=== PATIENT | female | born 1965 | race Two or more races ===

== ENCOUNTER 2024-04-26 12:55 | Outpatient (REF) | payer OTHER, SELFPAY ==
[2024-04-26 14:21] LABS: MANUAL DIFF FLAG NO
[2024-04-26 14:28] LABS: Basophils Absolute Auto 0.1 X10*3/uL (0.0-0.2); Basophils Percent Auto 0.7 % (0-2); Eosinophils Absolute Auto 0.1 X10*3/uL (0.0-0.4); Hemoglobin 12.8 g/dl (12.0-16.0); Imm Gran Abs Auto 0.02 X10*3/uL (0.00-0.03); Imm Gran Pct Auto 0.3 % (0.0-0.4); Lymphocytes Absolute Auto 2.7 X10*3/uL (1.2-4.9); Lymphocytes Percent Auto 37.9 % (20-40); Mean Corpuscular HGB Conc 32.8 g/dl (31.0-35.0); Mean Corpuscular Hemoglobin 27.9 pg (27.0-33.0); Mean Platelet Volume 10.6 fL (9.4-12.3); Monocytes Absolute Auto 0.5 X10*3/uL (0.1-1.2); Monocytes Percent Auto 7.1 % (2-11); Neutrophils Absolute Auto 3.6 x10*3/uL (2.0-8.3); Platelet Count 224 X10*3/uL (160-400); Red Blood Count 4.59 X10*6/uL (4.20-5.50); Red Cell Distribution Width 12.8 % (11.0-16.0)
[2024-04-26 14:56] LABS: Alanine Aminotransferase 28 U/L (0-31); Alkaline Phosphatase 98 U/L (39-117); Anion Gap 14 (12-20); Aspartate Amino Transferase 28 U/L (5-31); Bilirubin Total 0.4 mg/dL (0.0-1.0); Blood Urea Nitrogen 9 mg/dL (9-16); Calcium 9.7 mg/dL (8.4-10.2); Carbon Dioxide 23 mmol/L (22-29); Chloride 107 mmol/L (96-108); Cholesterol 171 mg/dL (<200); Estimated Glomerular Filt Rate > 60; Glucose Random 97 mg/dL (60-115); HDL Cholesterol 58 mg/dL (>40); LDL Cholesterol Calculated 93 mg/dL (<100); Potassium 3.7 mmol/L (3.3-5.1); Sodium 140 mmol/L (135-145); Total Protein 7.1 g/dL (6.5-8.0); Triglycerides 101 mg/dL (<150)
[2024-04-26 15:04] LABS: TSH reflex Free T4 1.55 uIU/mL (0.32-4.0)
[2024-04-27 07:13] LABS: Follicle Stimulating Hormone 155.6 mIU/mL
[2024-04-27 08:55] LABS: HIV AB/AG Nonreactive (Nonreactive); HIV Num 1 0.05 S/CO (0.00-0.99); ~HepC Num1 0.08 S/CO (0.00-0.79); ~Hepatitis C Antibody Nonreactive (Nonreactive)
[2024-05-05 04:23] LABS: Estradiol Ultra Sensitive 7 pg/mL
== END 2024-04-26 12:56 | disposition home or self-care (01) ==
LOC: HO.CHCLDS 12:55
PROVIDERS: Visit Provider Family Medicine
DX: Z13.9 Encounter for screening, unspecified (principal); Z78.0 Asymptomatic menopausal state
CPT/HCPCS: 36415; 80053; 80061; 82670; 83001; 84443; 85025; 86803; 87389

== ENCOUNTER 2024-12-17 16:15 | Outpatient (REF) | payer OTHER, SELFPAY ==
--- OUTSIDE RECORDS SUMMARY | 2024-12-17 16:18 | XMS_ITS | Encounter Summary ---
Author Organization [employer] Address [address] [facility] 7t [place] [address] Care Team Providers Care [employer] Compliance Internship Name Role Phone Nancy Castillo MD Primary Care Provider [phone] Encounter Details Date Type Department Care Team (Latest Contact Info) Description 12/17/2024 Travel Social History Tobacco Use Types Packs/Day Years Used Date Smoking Tobacco: Never Passive Smoke Exposure: Never Smokeless Tobacco: Never Alcohol Use Standard Drinks/Week Comments Never 0 (1 standard drink = 0.6 oz pur e alcohol) Housing Stability Answer Date Recorded What is your housing situation today? I have jeimy ron 04/16/[address] you li ve. Do you have problems with any of the following? None of the above 04/16/2024 Food Insecurity Answer Date Recorded Within the past 12 months, y ou worried that your food would run out before you got money to buy more: Never True 04/16/2024 Within the past 12 months,th e food you bought just didn't last and you didn't have enough money to get more: Never True 05/2024 Transportation Answer Date Recorded In the past 12 months, has l ack of transportation kept you from medical appts, meetings, work or from getting things needed for daily living? No 04/16/2024 Utilities Answer Date Recorded In the past 12 months, has t he electric, gas, oil or water company threatened to shut off services in your home? No 04/16/2024 Internet Access Answer Date Recorded Internet Access Q1 Yes 05/10/2024 Internet Access Q2 Not on file 05/10/2024 Comments Unknown Sex and Gender Information Value Date Recorded Sex Assigned at Female 07/08/2022 10:25 AM EDT Legal Sex Female 10:25 AM EDT Gender Identity Female 07/08/2022 10:25 AM EDT Sexual Orientation Straight 07/08/2022 10 :25 AM EDT Occupation Industry Job Start Date Job End Date Works in [employer] Not on file Not on file Not on file documented as of this encounter Plan of Treatment Not on file documented as of this encounter Visit Diagnoses Not on filedocumented in this encounter Care Teams [employer] Compliance Internship Relationship Specialty Start Date End Date Nancy Castillo MD [address] [place] [address] PCP - General Family Medicine 04/23/24 documented as of this encounter
--- OUTSIDE RECORDS SUMMARY | 2024-12-17 16:18 | XMS_ITS | Clinical Summary ---
Author Organization [employer] Address [address] [facility] 7t [place] [address] Care Team Providers Care Patient Access Representative Name Role Phone Nancy Castillo MD Primary Care Provider [phone] Allergies No known active allergies Medications omeprazole (PriLOSEC) [address] capsule Take 1 capsule (20 mg) by mouth Once per day. 90 capsule 1 4 Active gabapentin (Neurontin) 300 MG capsule Take 1 capsule (300 mg) by mouth 2 times daily. 180 capsule 1 4 Active triamcinolone (Kenalog) 0.1 % cream Apply topically 2 times daily. 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 Pt's is HIV positive. RUQ abdominal pain 04/22/2024 Lumbago with sciatica 04/22/2024 Hoarseness 04/22/2024 Heartburn 04/22/2024 Assessment & Plan (04/25/2024 1:41 AM EDT): Relevant orders: Omeprazole (PriLOSEC) [address] capsule Chronic pain of left elbow 04/22/2024 Chronic low back pain 04/22/2024 Encounters Date Type Department Care Team Description 12/17/2024 3:20 PM EDT Office Visit [facility] [address] [place] [address] Hoarseness (Primary Dx); Chronic hand pain, right 12/17/2024 Travel 11/15/2024 Telephone [facility] [address] [place], [place] [phone] Nancy Castillo MD Nurse Triage 11/09/2024 Refill [facility] [address] [place], [place] [phone] Mikey Edwards MD Paresthesia from Last 3 Months Immunizations Name Administration Dates Next Due Tdap 02/08/2023 Family History Medical History Relation Name Comments Lung disease Father Breast cancer Mother Relation Name Status Comments Father Mother Social History Tobacco Use Types Packs/Day Years Used Date Smoking Tobacco: Never Passive Smoke Exposure: Never Smokeless Tobacco: Never Tobacco Cessation:Counseling Given: Not Answered Alcohol Use Standard Drinks/Week Comments Never 0 (1 standard drink = 0.6 oz pur e alcohol) Housing Stability Answer Date Recorded What is your housing situation today? I have jeimywin velasquez 04/16/[address] you li [...] Start Date Job End Date Works in [employer] Not on file Not on file Not on file Last Filed Vital Signs Vital Sign Reading Time Taken Comments Blood Pressure 138/79 12/17/2024 3:20 PM EDT Pulse 64 12/17/2024 3:20 PM EDT Temperature 36.1 ??C (97 ??F) 12/17/2024 3:20 PM EDT Respiratory Rate 14 12/17/2024 3:20 PM EDT Oxygen Saturation 100% 12/17/2024 3:20 PM EDT Inhaled Oxygen Concentration - - Weight 66.2 kg (146 lb) 12/17/2024 3:20 PM EDT Height 160 cm (5' 3 ) 12/17/2024 3:20 PM EDT Body Mass Index 25.86 12/17/2024 3:20 PM EDT Plan of Treatment Health Maintenance Due Date Last Done Comments CT Colonography 1967 Colonoscopy 1967 Colorectal Cancer Screening 1967 Depression Screening 1967 FIT DNA/Cologuard 1967 FIT 1967 FOBT 1967 Sigmoidoscopy 1967 Alcohol/Substance Use Screening 1979 Hepatitis B Vaccines (1 of 3 - 19+ 3-dose series) 1986 HPV/Cotest 1997 Mammogram 2007 Pneumococcal Vaccine: 50+ Years (1 of 1 - PCV) 2017 Zoster Vaccines (1 of 2) 2017 COVID-19 Vaccine (5 - season) 2024 07/26/2022, 06/27/2021, 11/04/2020, Additional history exists Influenza Vaccine (#1) 2024 SDOH Screening 04/16/2025 04/16/2024 Cervical Cancer Screening 11/27/2025 Pap Smear 11/27/2025 11/27/2022 Tobacco Screening 12/17/2025 12/17/2024 DTaP/Tdap/Td Vaccines (2 - Td or Tdap) 02/08/2033 02/08/2023 RSV Patients and Patients Aged 60 years or older (1 - 1-dose 75+ series) 2042 HIV Screening Completed 04/26/2024 Hepatitis C Screening Completed 04/26/2024 HIB Vaccines Aged Out No longer eligi ble based on patient's age to complete this topic HPV Vaccines Aged Out No longer eligi ble based on patient's age to complete this topic Hepatitis A Vaccines Aged Out No long er eligible based on patient's age to complete this topic IPV Vaccines Aged Out No longer eligi ble based on patient's age to complete this topic Meningococcal Vaccine Aged Out No eze william eligible based on patient's age to complete this topic RSV under 20 months Aged Out No longe r eligible based on patient's age to complete this topic Rotavirus Vaccines Aged Out No longer eligible based on patient's age to complete this topic Procedures Procedure Name Priority Date/Time Associated Diagnosis Comments HEPATITIS C AB W/REFL TO HCV RNA, QN, PCR Routine 04/26/2024 12:59 PM EDT Encounter for health-related screening HIV 1/2 ANTIGEN/ANTIBODY, FOURTH GENERATION W/RFL Routine 04/26/2024 12:59 PM EDT Encounter for health-related screening PAP SMEAR Routine 11/27/2022 from Last 3 Months or Most Recently Relevant to Health Maintenance Results * Hepatitis C Antibody with Reflex to HCV, RNA, Quantitative, Real-Time PCR (04/26/2024 12:59 PM EDT) Hepatitis C Antibody Nonreactive Nonreactive [facility] Comment:Antibodies to HCV no t detected; does not exclude early acuteHCV infection. Blood Venous blood specimen / Unknown 04/26/2024 12:59 PM EDT 04/26/2024 2:19 PM EDT Nancy Castillo MD LAB BLOOD ORDERABLES Final Re sult Performing Organization Address [facility] Co de Phone Number [facility] [address] [place] [phone] * HIV-1/2 Antigen and Antibodies, Fourth Generation, with Reflexes (04/26/2024 12:59 PM EDT) HIV AB/AG Nonreactive Nonreactive [facility] Comment:HIV-1 p24 Ag and/or HIV-1/HIV-2 Ab not detected.A test result that is nonreactive does not exclude thepossibility of exposure to or infection with HIV-1 and/orHIV-2. Nonreactive results in this assay for individualswith prior exposure to HIV-1 and/or HIV-2 may be due toantigen and antibody levels that are below the limit ofdetection of this assay.The [employer] Socket HIV Ag/Ab Combo assay result andsupplemental assay results should be interpreted inconjunction with the patient's clinical presentation,history and other laboratory results. If the results areinconsistent with clinical evidence, additional testing issuggested to confirm the result. Blood Venous blood specimen / Unknown 04/26/2024 12:59 PM EDT 04/26/2024 2:19 PM EDT Nancy Castillo MD LAB BLOOD ORDERABLES Final Re sult Performing Organization Address [facility] Co de Phone Number [facility] [address] [place] [phone] * Pap Smear (11/27/2022) Pap Smear 1. NILM 1. NILM Swab 11/27/2022 Historical Provider LAB CYTOLOGY ORDERABLES F inal Result from Last 3 Months or Most Recently Relevant to Health Maintenance Insurance [facility] Care Teams Patient Access Representative Relationship Specialty Start Date End Date Nancy Castillo MD [address] [place] [phone] PCP - General Family Medicine 04/23/24
--- OUTSIDE RECORDS SUMMARY | 2024-12-17 16:18 | XMS_ITS | Encounter Summary ---
Author Organization [employer] Address [address] [place] [address] 7t [place] [address] Care Team Providers Care Product Manager Financial Services Name Role Phone Nancy Castillo MD Primary Care Provider Reason for Referral * Neurology (Routine) - Pending Review Specialty Diagnoses / Procedures Referred By Pedro french Referred To Contact Diagnoses Chronic hand pain, right Procedures Nerve conduction test Audra Monroe MD [address] [place] [address] Phone: tel: fax: Referral ID Status Reason Start Date Expiration Date V isits Requested Visits Authorized [id number] Pending Review 12/17/2024 12/17/2025 1 1 * Neurology (Routine) - Pending Review Specialty Diagnoses / Procedures Referred By Pedro french Referred To Contact Diagnoses Chronic hand pain, right Procedures EMG Audra [place] MD [address] [place] [address] Phone: tel: fax: Referral ID Status Reason Start Date Expiration Date V isits Requested Visits Authorized [id number] Pending Review 12/17/2024 12/17/2025 1 1 Encounter Details Date Type Department Care Team ([facility] st Contact Info) Description 12/17/2024 3:20 PM EDT Office Visit [facility] [address] [place], [place] [phone] Hoarseness (Primary Dx); Chronic hand pain, right Social History Tobacco Use Types Packs/Day Years Used Date Smoking Tobacco: Never Passive Smoke Exposure: Never Smokeless Tobacco: Never Alcohol Use Standard Drinks/Week Comments Never 0 (1 standard drink = 0.6 oz pur e alcohol) Housing Stability Answer Date Recorded What is your housing situation today? I have jeimy velasquez 04/16/[address] you [...] Start Date Job End Date Works in [employer] Not on file Not on file Not on file documented as of this encounter Last Filed Vital Signs Vital Sign Reading [...] Mass Index 25.86 12/17/2024 3:20 PM EDT documented in this encounter Plan of Treatment Scheduled Orders Name Type Priority Associated Diagnoses Orde r Schedule Acetylcholine Receptor Blocking Antibody Lab Routine Hoarseness Expected: 12/17/2024 (Approximate), Expires: 12/17/2025 EMG Neurology Routine Chronic hand pain, right Expected: 12/17/2024, Expires: 06/18/2025 Nerve conduction test Neurology Routine Chronic hand pain, right Expected: 12/17/2024 (Approximate), Expires: 12/17/2025 documented as of this encounter Visit Diagnoses Diagnosis Hoarseness- Primary Dysphonia Chronic hand pain, right documented in this encounter Care Teams Product Manager Financial Services Relationship Specialty Start Date End Date Nancy Csatillo MD [address] [place] [phone] PCP - General Family Medicine 04/23/24 documented as of this encounter
--- OUTSIDE RECORDS SUMMARY | 2024-12-17 16:18 | XMS_ITS | Encounter Summary ---
Author Organization [email or web address] Address [address] [facility] 7t [place] [address] Care Team Providers Care Photographer'S Assistant Name Role Phone Nancy Castillo MD Primary Care Provider [phone] Reason for Visit * Reason Onset Date Comments Nurse Triage 08/17/2024 Encounter Details Date Type Department Care Team ([facility] Contact Info) Description 08/17/2024 Telephone [facility] [address] [place], [place] [phone] Nancy Castillo MD [address] [place] [address] Nurse Triage Social History Tobacco Use Types Packs/Day Years [...] Start Date Job End Date Works in [employer] Not on file Not on file Not on file documented as of this encounter Miscellaneous Notes * Telephone Encounter - Renetta Rodarte RN - 08/17/2024 12:10 PM EST Triage call Pt reports rash which was the same as this time last year. Pt reports last year Pt returned to [facility] and was treated there. Pt describes rash as red, smooth unless was scratched due to itchiness and then it gets bumpy. Neg for drainage. Areas for rash are abdomen, breast, shoulder, underarms, back and vaginal area. ASK apt in [facility] 08/18/24 @ 200pm. Pt agrees with disposition. Insurance is verified as active prior to booking. Protocol Used: Rash or Redness - Widespread (Adult) Protocol-Based Disposition: See in Office or Video Visit Today or Tomorrow Video visit not offered Positive Triage Question: * Mild widespread rash (Exception: Heat rash lasting 3 days or less.) * All higher-acuity triage questions were negative Care Advice Discussed: * Reassurance and Education - Widespread Rash * Reasons To Call Back - Rash becomes purple or blood-colored or blister-like - Fever occurs or severe itching - You become worse * Telephone Encounter - Janine Kerr - 08/17/2024 11:27 AM EST Symptom: Rash or Redness - Widespread Outcome: Schedule a same-day appointment or talk to a nurse or provider today Reason: Caller denied all higher acuity questions The caller accepted this outcome. documented in this encounter Plan of Treatment Not on file documented as of this encounter Visit Diagnoses Not on filedocumented in this encounter Care Teams Photographer'S Assistant Relationship Specialty Start Date End Date Nancy Castillo MD [address] [place] [address] PCP - General Family Medicine 04/23/24 documented as of this encounter
--- OUTSIDE RECORDS SUMMARY | 2024-12-17 16:18 | XMS_ITS | Encounter Summary ---
Author Organization [employer] Address [address] [facility] 7t [place] [address] Care Team Providers Care Lion Trainer Name Role Phone Nancy Castillo MD Primary Care Provider [phone] Encounter Details Date Type Department Care Team ([facility] st Contact Info) Description 04/27/2024 Orders Only [facility] [address] [place], [place] [phone] ProviderAlma MD Social History Tobacco Use Types Packs/Day Years [...] off services in your home? No 04/16/2024 Comments Unknown Sex and Gender Information Value Date Recorded Sex Assigned at Female 07/08/2022 10:25 AM EDT Legal Sex Female 10:25 AM EDT Gender Identity Female 07/08/2022 10:25 AM EDT Sexual Orientation Straight 07/08/2022 10 :25 AM EDT Occupation Industry Job Start Date Job End Date Works in [employer] Not on file Not on file Not on file documented as of this encounter Plan of Treatment Not on file documented as of this encounter Procedures Procedure Name Priority Date/Time Associated Diagnosis Comments CYTOLOGY, CONVENTIONAL PAP SMEAR, 1 SLIDE Routine 11/27/2022 3:55 PM EDT CYTOLOGY, CONVENTIONAL PAP SMEAR, 1 SLIDE Routine 11/26/2021 3:54 PM EDT documented in this encounter Results * Cytology, Conventional Pap Smear, 1 Slide (11/27/2022 3:55 PM EDT) Historical Provider MD LAB CYTOLOGY ORDERABLES F inal Result * Cytology, Conventional Pap Smear, 1 Slide (11/26/2021 3:54 PM EDT) us Historical Provider MD LAB CYTOLOGY ORDERABLES F inal Result documented in this encounter Visit Diagnoses Not on filedocumented in this encounter Care Teams Lion Trainer Relationship Specialty Start Date End Date Nancy Castillo MD [address] [place] [phone] PCP - General Family Medicine 04/23/24 documented as of this encounter
[2024-12-23 02:55] LABS: Acetylcholine Recept. Blocking <15 (<15)
== END 2024-12-17 16:16 | disposition home or self-care (01) ==
LOC: CF 16:15
PROVIDERS: Visit Provider Internal Medicine
DX: R49.0 Dysphonia (principal)
CPT/HCPCS: 36415; 86042

== ENCOUNTER 2025-01-04 10:02 | Outpatient (REF) | payer OTHER, SELFPAY ==
--- NOTE | 2025-01-04 10:06 | EMG_ITS ---
Right median and ulnar motor and sensory studies were performed. Right radial sensory and median and lateral antecubital brachial sensory studies were performed and paraspinal muscles were tested with a needle. IMPRESSION: This is an unremarkable study with no evidence of entrapment neuropathy, plexopathy, or radiculopathy. MD STEPHANIE Thomas/SEGUNDO / [id number]
--- OUTSIDE RECORDS SUMMARY | 2025-01-04 11:23 | XMS_ITS | Clinical Summary ---
Author Organization [employer] Address [address] [facility] 7t [place] [address] Care Team Providers Care Database Design Analyst Name Role Phone Nancy Castillo MD Primary Care Provider [phone] Allergies No known active allergies Medications omeprazole [...] Encounters Date Type Department Care Team Description 12/28/2024 Telephone [facility] [address] [place] [address] Audra Monroe MD Results 12/17/2024 3:20 PM EDT Office Visit [facility] [address] [place] [address] Audra Monroe MD Hoarseness (Primary Dx); Chronic hand pain, right 12/17/2024 Travel 11/15/2024 Telephone [facility] [address] [place] [address] Nancy Castillo MD Nurse Triage 11/09/2024 Refill [facility] [address] [place] [address] Mikey Edwards MD Paresthesia from Last 3 [...] Start Date Job End Date Works in [employer] Not on file Not on file [...] Procedure Name Priority Date/Time Associated Diagnosis Comments ACETYLCHOLINE RECEPTOR BLOCKING ANTIBODY Routine 12/17/2024 4:16 PM EDT Hoarseness HEPATITIS C AB W/REFL TO HCV RNA, QN, PCR Routine 04/26/2024 12:59 PM EDT Encounter for health-related screening HIV 1/2 ANTIGEN/ANTIBODY, FOURTH GENERATION W/RFL Routine 04/26/2024 12:59 PM EDT Encounter for health-related screening PAP SMEAR Routine 11/27/2022 from Last 3 Months or Most Recently Relevant to Health Maintenance Results * Acetylcholine Receptor Blocking Antibody (12/17/2024 4:16 PM EDT) Acetylcholine Receptor Blocking Antibody <15 <15 [facility] Comment:Result Units: % Inhi bitionTHIS TEST WAS PERFORMED AT:[facility] [id number] [place] [id number] HAYNES MD,PHD,HELENE Blood Venous blood specimen / Unknown 12/17/2024 4:16 PM EDT 12/17/2024 5:41 PM EDT us Audra Monroe MD LAB BLOOD ORDERABLES Final Re sult Performing Organization Address [facility] Co de Phone Number [facility] [address] [place] [address] [phone] * Hepatitis C Antibody with Reflex to HCV, RNA, Quantitative, Real-Time PCR (04/26/2024 12:59 PM EDT) Hepatitis C Antibody Nonreactive Nonreactive [facility] Comment:Antibodies to HCV no t detected; does not exclude early acuteHCV infection. Blood Venous blood specimen / Unknown 04/26/2024 12:59 PM EDT 04/26/2024 2:19 PM EDT us Nancy Castillo MD LAB BLOOD ORDERABLES Final Re sult Performing Organization Address [facility] Co de Phone Number [facility] [address] [place] [address] [phone] * HIV-1/2 Antigen and Antibodies, Fourth Generation, with Reflexes (04/26/2024 12:59 PM EDT) HIV AB/AG Nonreactive Nonreactive [facility] Comment:HIV-1 p24 Ag and/or HIV-1/HIV-2 Ab not detected.A test result that is nonreactive does not exclude thepossibility of exposure to or infection with HIV-1 and/orHIV-2. Nonreactive results in this assay for individualswith prior exposure to HIV-1 and/or HIV-2 may be due toantigen and antibody levels that are below the limit ofdetection of this assay.The [employer]HackMyPic HIV Ag/Ab Combo assay result andsupplemental assay results should be interpreted inconjunction with the patient's clinical presentation,history and other laboratory results. If the results areinconsistent with clinical evidence, additional testing issuggested to confirm the result. Blood Venous blood specimen / Unknown 04/26/2024 12:59 PM EDT 04/26/2024 2:19 PM EDT us Nancy Castillo MD LAB BLOOD ORDERABLES Final Re sult [facility] [address] [place] [phone] * Pap Smear (11/27/2022) Pap Smear 1. NILM 1. NILM Swab 11/27/2022 Historical Provider LAB CYTOLOGY ORDERABLES F inal Result from Last 3 Months or Most Recently Relevant to Health Maintenance Insurance [facility] Care Teams Database Design Analyst Relationship Specialty Start Date End Date Nancy Castillo MD [address] [place] [phone] PCP - General Family Medicine 04/23/24
--- OUTSIDE RECORDS SUMMARY | 2025-01-04 11:23 | XMS_ITS | Encounter Summary ---
Author Organization [email or web address] Address [address] [facility] 7t [place] [address] Care Team Providers Care Basket Operator Name Role Phone Nancy Castillo MD Primary Care Provider [phone] Reason for Visit * Reason Onset Date Comments Nurse Triage 08/17/2024 Encounter Details Date Type Department Care Team ([facility] Contact Info) Description 08/17/2024 Telephone [facility] [address] [place], [place] [phone] Nancy Castillo MD [address] [place] [address] Nurse Triage Social History Tobacco Use Types [...] Start Date Job End Date Works in [employer] Not on file Not on file Not on file documented as of this encounter Miscellaneous Notes * Telephone Encounter - Renetta Rodarte RN - 08/17/2024 12:10 PM EST Triage call Pt reports rash which was the same as this time last year. Pt reports last year Pt returned to [facility] and was treated there. Pt describes rash as red, smooth unless was scratched due to itchiness and then it gets bumpy. Neg for drainage. Areas for rash are abdomen, breast, shoulder, underarms, back and vaginal area. ASK apt in [facility] 08/18/24 @ 200pm. Pt agrees with disposition. [...] on filedocumented in this encounter Care Teams Basket Operator Relationship Specialty Start Date End Date Nancy Castillo MD [address] [place] [address] PCP - General Family Medicine 04/23/24 documented as of this encounter
--- OUTSIDE RECORDS SUMMARY | 2025-01-04 11:23 | XMS_ITS | Encounter Summary ---
Author Organization [employer] Address [address] [facility] 7t [place] [address] Care Team Providers Care Enrollment Services Vice President Name Role Phone Nancy Castillo MD Primary Care Provider [phone] Encounter Details Date Type Department Care Team ([facility] st Contact Info) Description 04/27/2024 Orders Only [facility] [address] [place], [place] [phone] ProviderAlma MD Social History Tobacco Use Types [...] Start Date Job End Date Works in [employer] Not on file Not on file [...] on filedocumented in this encounter Care Teams Enrollment Services Vice President Relationship Specialty Start Date End Date Nancy Castillo MD [address] [place] [phone] PCP - General Family Medicine 04/23/24 documented as of this encounter
== END 2025-01-04 10:03 | disposition home or self-care (01) ==
LOC: HO.NEURO 10:02
PROVIDERS: Visit Provider Internal Medicine
DX: M79.641 Pain in right hand (principal); G89.29 Other chronic pain
CPT/HCPCS: 95886; 95910

== ENCOUNTER 2025-04-13 09:54 | Outpatient (REF) | payer OTHER, SELFPAY ==
--- OUTSIDE RECORDS SUMMARY | 2025-04-13 10:27 | XMS_ITS | Encounter Summary ---
Author Organization [employer] Address [address] [place] [address] [address] [place] [address] Care Team Providers Care Natural Gas Field Processing Supervisor Name Role Phone Nancy Castillo MD Primary Care Provider [phone] Reason for Visit * Reason Onset Date Comments Nurse Triage 08/17/2024 Encounter Details Date Type Department Care Team ([facility] Contact Info) Description 08/17/2024 Telephone [facility] MED & PEDS [address] [place] [address] Nancy Castillo MD [address] [place] [address] Nurse Triage Social History Tobacco Use Types Packs/Day Years Used Date Smoking Tobacco: Never Passive Smoke Exposure: Never Smokeless Tobacco: Never Alcohol Use Standard Drinks/Week Comments Never 0 (1 standard drink = 0.6 oz pur e alcohol) Housing Stability Answer Date Recorded What is your housing situation today? I have jemiy velasquez 04/16/[address] you [...] Start Date Job End Date Works in [employer] Not on file Not on file Not on file documented as of this encounter Miscellaneous Notes * Telephone Encounter - Renetta Rodarte RN - 08/17/2024 12:10 PM EST Triage call Pt reports rash which was the same as this time last year. Pt reports last year Pt returned to [facility] and was treated there. Pt describes rash as red, smooth unless was scratched due to itchiness and then it gets bumpy. Neg for drainage. Areas for rash are abdomen, breast, shoulder, underarms, back and vaginal area. ASK apt in [facility] 08/18/24 @ 200pm. Pt agrees with [...] documented in this encounter Plan of Treatment Upcoming Encounters Date Type Department Care Team (Late st Contact Info) Description 06/13/2025 11:00 AM EDT Office Visit [facility] MED & PEDS [address] [place] [address] Nancy Castillo MD [address] [place] [address] documented as of this encounter Visit Diagnoses Not on filedocumented in this encounter Care Teams Natural Gas Field Processing Supervisor Relationship Specialty Start Date End Date Nancy Castillo MD [address] [place] [id number] PCP - General Family Medicine 04/23/24 documented as of this encounter
[2025-04-13 14:25] LABS: MANUAL DIFF FLAG NO
[2025-04-13 14:35] LABS: Hematocrit 40.8 % (37.0-47.0); Hemoglobin 13.2 g/dl (12.0-16.0); Imm Gran Abs Auto 0.02 X10*3/uL (0.00-0.03); Imm Gran Pct Auto 0.2 % (0.0-0.4); Lymphocytes Absolute Auto 2.8 X10*3/uL (1.2-4.9); Mean Corpuscular HGB Conc 32.4 g/dl (31.0-35.0); Mean Corpuscular Hemoglobin 27.1 pg (27.0-33.0); Mean Corpuscular Volume 83.8 fL (80.0-98.0); NRBC Abs Auto 0.000 X10*3/uL (0.0-0.012); NRBC Pct Auto 0.0 /100WBC (0.0-0.2); Platelet Count 293 X10*3/uL (160-400); Red Blood Count 4.87 X10*6/uL (4.20-5.50); White Blood Count 8.1 X10*3/uL (4.8-10.8)
[2025-04-13 15:24] LABS: Folate 7.7 ng/mL (> or = 4.0); Vitamin B12 1859 pg/mL (200-900)
[2025-04-16 12:02] LABS: Anti Nuclear Antibody Screen NEGATIVE (NEGATIVE)
== END 2025-04-13 09:55 | disposition home or self-care (01) ==
LOC: HO.CHCLDS 09:54
PROVIDERS: Visit Provider Pediatrics
DX: Z01.84 Encounter for antibody response examination (principal); R49.0 Dysphonia; M25.50 Pain in unspecified joint
CPT/HCPCS: 36415; 82306; 82607; 82746; 84443; 85025; 85652; 86038

== ENCOUNTER 2025-05-30 15:36 | Outpatient (REF) | payer OTHER, SELFPAY ==
--- NOTE | ~2025-05-30 | US_ITS ---
EXAMINATION: US THYROID CLINICAL INFORMATION: Chronic hoarseness rule out thyroid nodule COMPARISON: None available. TECHNIQUE: Linear transducer grayscale and color Doppler examination with attention to the region of the thyroid. FINDINGS: SIZE: Measurements of the thyroid lobes and nodules are given in sagittal, anteroposterior and transverse dimensions respectively. Right Thyroid Lobe: 4.6 x 0.9 x 1.1 cm, volume 2.3 mL. Parenchyma: The gland echotexture is homogeneous. Thyroid vascularity is normal. Left Thyroid Lobe: 4.3 x 0.8 x 1.4 cm, volume 2.5 mL. Parenchyma: The gland echotexture is homogeneous. Thyroid vascularity is normal. Isthmus: 0.2 cm in maximum AP dimension. Estimated total number of nodules greater than or equal to 1 cm: 0. 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 No solid nodule seen. NODES: No lymphadenopathy is seen in the tissue surrounding the thyroid gland. US/US thyroid IMPRESSION: Stable bilateral atelectasis. No solid mass seen. Thyroid gland is unremarkable otherwise. ACR TI-RADS RECOMMENDATION REFERENCE: Ultrasound-guided fine-needle aspiration, followup ultrasound, no further follow up. * TR1 (0 point) and TR2 (2 points): No FNA or follow up. * TR3 (3 points): FNA if more than or equal to 2.5 cm in maximum dimension, followup ultrasound in 1, 3 and 5 years if 1.5 to 2.4 cm in maximum dimension. * TR4 (4-6 points): FNA if more than or equal to 1.5 cm in maximum dimension, followup ultrasound in 1, 2, 3 and 5 years if 1 to 1.4 cm in maximum dimension. * TR5 (more than or equal to 7 points): FNA if more than or equal to 1 cm in maximum dimension, followup ultrasound every year for 5 years if 0.5 to 0.9 cm in maximum dimension. * TR3, TR4 or TR5 nodules that are below the size threshold for followup receive no follow up. Electronically signed by: Tristin Kellogg MD 05/31/2025 08:07 AM EDT
--- OUTSIDE RECORDS SUMMARY | 2025-05-30 17:55 | XMS_ITS ---
Encounter Summary Created on: May 30, 2025 Allen Cassidy : 1965
== END 2025-05-30 15:37 | disposition home or self-care (01) ==
LOC: HO.US 15:36
PROVIDERS: PCP Family Medicine; Visit Provider Pediatrics
DX: R49.0 Dysphonia (principal)
CPT/HCPCS: 76536

== ENCOUNTER → 2025-05-30 15:38 | Outpatient (BNV) | payer OTHER, SELFPAY | PROVIDERS: PCP Family Medicine; Visit Provider Radiology Diagnostic Radiology | DX: J98.11 Atelectasis (principal) | CPT/HCPCS: 76536 ==

== ENCOUNTER 2025-06-13 11:48 | Outpatient (REF) | payer OTHER, SELFPAY ==
--- OUTSIDE RECORDS SUMMARY | 2025-06-13 11:00 | XMS_ITS | Encounter Summary ---
Author Organization [employer] Address [address] [place] [address] [address] [place] [address] Care Team Providers Care Lab Support Service Tech Name Role Phone Nancy Castillo MD Primary Care Provider [phone] Reason for Referral * Imaging (Routine) - Authorized Specialty Diagnoses / Procedures Referred By Contac t Referred To Contact Radiology Diagnoses Encounter for screening mammogram for malignant neoplasm of breast Procedures BI Mammogram Screening Tomosynthesis Bilateral Nancy Castillo MD [address] [place] [address] Phone: tel: fax: [address] Phone: tel: fax: Referral ID Status Reason Start Date Expiration Date V isits Requested Visits Authorized [id number] Authorized 06/13/2025 06/13/2026 1 1 * Imaging (Routine) - Pending Review Specialty Diagnoses / Procedures Referred By Contac t Referred To Contact Radiology Diagnoses Hoarseness Procedures CTA Head Neck w/ and w/o Contrast Nancy Castillo MD [address] [place] [address] Phone: tel: fax: [address] Phone: tel: fax: Referral ID Status Reason Start Date Expiration Date V isits Requested Visits Authorized [id number] Pending Review 06/13/2025 06/13/2026 1 1 Reason for Visit * Reason Comments Follow-up Encounter Details Date Type Department Care Team (Latest Contact Info) Description 06/13/2025 11:00 AM EDT Office Visit [facility] CH[facility] MED & PEDS [address] [place] [address] Nancy Castillo MD [address] [place] [address] Hoarseness (Primary Dx); Encounter for screening mammogram for malignant neoplasm of breast; Encounter for immunization; Encounter for health-related screening; Low back pain with sciatica, sciatica laterality unspecified, unspecified back pain laterality, unspecified chronicity; Herniation of cervical intervertebral disc with radiculopathy Social History Tobacco Use Types Packs/Day Years [...] Start Date Job End Date Works in [employer] Not on file Not on file Not on file documented as of this encounter Last Filed Vital Signs Vital Sign Reading Time Taken Comments Blood Pressure 136/67 06/13/2025 10:53 AM EDT Pulse 64 06/13/2025 10:53 AM EDT Temperature 36.7 C (98.1 F) 06/13/2025 10:53 AM EDT Respiratory Rate 20 06/13/2025 10:53 AM EDT Oxygen Saturation 98% 06/13/2025 10:53 AM EDT Inhaled Oxygen Concentration - - Weight 66.9 kg (147 lb 6.4 oz) 06/13/2025 10:53 AM EDT Height 160 cm (5' 3 ) 06/13/2025 10:53 AM EDT Body Mass Index 26.11 06/13/2025 10:53 AM EDT documented in this encounter Plan of Treatment Scheduled Orders Name Type Priority Associated Diagnoses Orde r Schedule CTA Head Neck w/ and w/o Contrast Imaging Routine Hoarseness Expected: 06/13/2025, Expires: 06/13/2026 Respiratory Allergy Profile Region I Lab Routine Hoarseness Expected: 06/13/2025, Expires: 06/13/2026 BI Mammogram Screening Tomosynthesis Bilateral Imaging Routine Encounter for screening mammogram for malignant neoplasm of breast Expected: 06/13/2025, Expires: 08/13/2026 Lipid Panel, Standard Lab Routine Encounter for health-related screening Expected: 06/13/2025 (Approximate), Expires: 06/13/2026 HIV-1/2 Antigen and Antibodies, Fourth Generation, with Reflexes Lab Routine Encounter for health-related screening Expected: 06/13/2025 (Approximate), Expires: 06/13/2026 documented as of this encounter Visit Diagnoses Diagnosis Hoarseness- Primary Dysphonia Encounter for screening mammogram for malignant neoplasm of breast Encounter for immunization Encounter for health-related screening Low back pain with sciatica, sciatica laterality unspecified, unspecified back pain laterality, unspecified chronicity Herniation of cervical intervertebral disc with radiculopathy documented in this encounter Care Teams Lab Support Service Tech Relationship Specialty Start Date End Date Nancy Castillo MD [address] [place] [address] PCP - General Family Medicine 04/23/24 documented as of this encounter
--- OUTSIDE RECORDS SUMMARY | 2025-06-13 14:22 | XMS_ITS | Encounter Summary ---
Author Organization [employer] Address [address] [facility] [address] [place] [address] Care Team Providers Care Regulatory Affairs Manager Name Role Phone Nancy Castillo MD Primary Care Provider [phone] Encounter Details Date Type Department Care Team (Latest Contact Info) Description 06/13/2025 Travel Social History Tobacco Use Types Packs/Day [...] Start Date Job End Date Works in [employer] Not on file Not on file Not on file documented as of this encounter Plan of Treatment Not on file documented as of this encounter Visit Diagnoses Not on filedocumented in this encounter Care Teams Regulatory Affairs Manager Relationship Specialty Start Date End Date Nancy Castillo MD [address] [place] [address] PCP - General Family Medicine 04/23/24 documented as of this encounter
--- OUTSIDE RECORDS SUMMARY | 2025-06-13 14:22 | XMS_ITS | Encounter Summary ---
Author Organization [employer] Address [address] [place] [address] [address] [place] [address] Care Team Providers Care Practical Nurse Name Role Phone Nancy Castillo MD Primary Care Provider [phone] Reason for Visit * Reason Onset Date Comments Nurse Triage 08/17/2024 Encounter Details Date Type Department Care Team ([facility] Contact Info) Description 08/17/2024 Telephone [facility] CHC MED & PEDS [address] [place] [address] Nancy Castillo MD [address] [place] [address] Nurse Triage Social History Tobacco Use Types [...] Start Date Job End Date Works in [employer] Not on file Not on file Not on file documented as of this encounter Miscellaneous Notes * Telephone Encounter - Renetta Rodarte RN - 08/17/2024 12:10 PM EST Triage call Pt reports rash which was the same as this time last year. Pt reports last year Pt returned to [facility] and was treated there. Pt describes rash as red, smooth unless was scratched due to itchiness and then it gets bumpy. Neg for drainage. Areas for rash are abdomen, breast, shoulder, underarms, back and vaginal area. ASK apt in [facility] 08/18/24 @ 200pm. Pt agrees with [...] on filedocumented in this encounter Care Teams Practical Nurse Relationship Specialty Start Date End Date Nancy Castillo MD [address] [place] [address] PCP - General Family Medicine 04/23/24 documented as of this encounter
--- OUTSIDE RECORDS SUMMARY | 2025-06-13 14:22 | XMS_ITS | Encounter Summary ---
Author Organization [employer] Address [address] [place] [address] [address] [place] [address] Care Team Providers Care Commodities Clerk Name Role Phone Nancy Castillo MD Primary Care Provider [phone] Reason for Visit * Reason Onset Date Comments Chart Prep 06/10/2025 Encounter Details Date Type Department Care Team ([facility] Contact Info) Description 06/10/2025 Telephone [facility] CHC MED & PEDS [address] [place] [address] Nancy Castillo MD [address] [place] [address] Chart Prep Social History Tobacco Use Types Packs/Day Years [...] Start Date Job End Date Works in [employer] Not on file Not on file Not on file documented as of this encounter Miscellaneous Notes * Telephone Encounter - aJylin Thompson MA - 06/10/2025 3:09 PM EDT Chart Prep Labs: done Images: done Referrals: appointment pending Vaccines due: Covid, Flu, PCV20, Hep B, and Zoster Screenings: colonoscopy and mammogram Overdue care gaps: PHQ-9 documented in this encounter Plan of Treatment Not on file documented as of this encounter Visit Diagnoses Not on filedocumented in this encounter Care Teams Commodities Clerk Relationship Specialty Start Date End Date Nancy Castillo MD [address] [place] [address] PCP - General Family Medicine 04/23/24 documented as of this encounter
--- OUTSIDE RECORDS SUMMARY | 2025-06-13 14:23 | XMS_ITS | Clinical Summary ---
Author Organization [employer] Address [address] [facility] 7[address] [place] [address] Care Team Providers Care Machine Container Washer Name Role Phone Nancy Castillo MD Primary Care Provider [phone] Allergies No known active allergies Medications gabapentin (Neurontin) 300 MG capsule Take 1 capsule (300 mg) by mouth 2 times daily. 180 capsule 1 4 Active triamcinolone (Kenalog) 0.1 % cream Apply topically 2 times daily. 80 g 2 4 Active amitriptyline (Elavil) 10 MG tabletIndicatio ns:Paresthesia TAKE 1 TABLET BY MOUTH EVERYDAY AT BEDTIME 90 tablet 1 5 Active cholecalciferol (Vitamin D-3) 50 MCG (1999 UT) capsule Take 1 capsule (50 mcg) by mouth Once per day. 90 capsule 3 5 Active pantoprazole (Protonix) 40 MG EC tablet Take 1 tablet (40 mg) by mouth 2 times daily. Do not crush, chew, or split. 60 tablet 1 5 Active omeprazole (PriLOSEC) [address] capsule TAKE 1 CAPSULE BY MOUTH ONCE DAILY 90 capsule 1 5 06/13/20 25 Discontinu ed(Therapy completed) esomeprazole (NexIUM) [address] capsuleIndicati ons:Hoarseness Take 1 capsule (20 mg) by mouth in the morning and at bedtime. Do not open capsule. 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 06/13/20 25 Intertrigo 06/13/2025 Blurring of visual image 06/13/2025 Overview (06/13/2025): Gradual Herniation of cervical inter vertebral disc with [...] Encounters Date Type Department Care Team Description 06/13/2025 11:00 AM EDT Office Visit [facility] [address] [place] [address] Nancy Castillo MD Hoarseness (Primary Dx); Encounter for screening mammogram for malignant neoplasm of breast; Encounter for immunization; Encounter for health-related screening; Low back pain with sciatica, sciatica laterality unspecified, unspecified back pain laterality, unspecified chronicity; Herniation of cervical intervertebral disc with radiculopathy 06/13/2025 Travel 06/10/2025 Telephone [facility] [address] [place] [address] Nancy Castillo MD Chart Prep 04/18/2025 Orders Only [facility] [address] [place] [address] Krystin Melendez MD 04/18/2025 Results Follow-Up [facility] [address] [place] [address] Krystin Melendez MD CBC auto differential, Vitamin D, 25-Hydroxy, Total, Immunoassay, TSH W/Reflex to FT4, Additional followed-up results: 4 04/13/2025 9:15 AM EDT Office Visit [facility] [address] [place] [address] Krystin Melendez MD Hoarseness (Primary Dx); Polyarthralgia; Dietary counseling; Exercise counseling; Heartburn 04/13/2025 Travel 04/12/2025 Telephone [facility] [address] [place] [address] Nancy Castillo MD 04/06/2025 3:40 PM EDT Office Visit [facility] [address] [place] [address] Mikey Edwards MD Hoarseness (Primary Dx) 04/06/2025 Travel 04/05/2025 Patient Outreach [facility] [address] [place] [phone] Nancy Castillo MD Pre-visit Planning (SDOH screening completed on 03/17/25) 03/23/2025 Telephone [facility] [address] [place] [address] Nancy Castillo MD Chart Prep 03/17/2025 Patient Outreach [facility] [address] [place] [address] Nancy Castillo MD Pre-visit Planning (SDOH screening negative and Tobacco screening negative) from Last 3 Months Immunizations Immunization Administration Dates Next Due Influenza, seasonal, injectable, preservative fr ee 06/13/2025 Pfizer Covid-19 Vaccine 12+ Bivalent 07/26/2022 Tdap 02/08/2023 Family History Medical History Relation [...] Start Date Job End Date Works in [employer] Not on file Not on file [...] Mass Index 26.11 06/13/2025 10:53 AM EDT Plan of Treatment Health Maintenance Due Date Last Done Comments CT Colonography 1967 Colonoscopy 1967 Colorectal Cancer Screening 1967 Depression Screening 1967 FIT DNA/Cologuard 1967 FIT 1967 FOBT 1967 Sigmoidoscopy 1967 Mammogram 2007 Cervical Cancer Screening 11/27/2025 HPV/Cotest 11/27/2025 Pap Smear 11/27/2025 11/27/2022 SDOH Screening 03/17/2026 03/17/2025 Alcohol/Substance Use Screening 04/13/2026 04/13/2025 Disability Screening 04/13/2026 04/13/2025 COVID-19 Vaccine ( season) 2026 07/26/2022, 06/27/2021, 11/04/2020, Additional history exists Postponed from 05/09/2025 (Patient Refused) Hepatitis B Vaccines (1 of 3 - 19+ 3-dose series) 06/13/2026 Postponed from 1986 (Patient Refused) Pneumococcal Vaccine: 50+ Years (1 of 1 - PCV) 06/13/2026 Postponed from 2017 (Patient Refused) Tobacco Screening 06/13/2026 06/13/2025 Zoster Vaccines (1 of 2) 06/13/2026 Pos tponed from 2017 (Patient Refused) DTaP/Tdap/Td Vaccines (2 - Td or Tdap) 02/08/2033 02/08/2023 RSV Patients and Patients Aged 60 years or older (1 - 1-dose 75+ series) 2042 HIV Screening Completed 04/26/2024 Hepatitis C Screening Completed 04/26/2024 Influenza Vaccine Completed 06/13/2025 HIB Vaccines Aged Out No longer eligi [...] patient's age to complete this topic Meningococcal B Vaccine Aged Out No l onger eligible based on patient's age to complete [...] Procedure Name Priority Date/Time Associated Diagnosis Comments US THYROID Routine 05/30/2025 4:18 PM EDT Hoarseness VITAMIN B12/FOLATE, SERUM PANEL Routine 04/13/2025 9:56 AM EDT Hoarseness Polyarthralgia CECELIA SCREEN, IFA, W/REFL TITER AND PATTERN Routine 04/13/2025 9:56 AM EDT Hoarseness Polyarthralgia SED RATE BY MODIFIED WESTERGREN Routine 04/13/2025 9:56 AM EDT Hoarseness Polyarthralgia TSH W/REFLEX TO FT4 Routine 04/13/2025 9 :56 AM EDT Hoarseness Polyarthralgia VITAMIN D,25-OH,TOTAL,IA Routine 04/13/2025 9:56 AM EDT Hoarseness Polyarthralgia CBC WITH AUTO DIFFERENTIAL Routine 04/13/2025 9:56 AM EDT Hoarseness Polyarthralgia HEPATITIS C AB W/REFL TO HCV RNA, QN, PCR Routine 04/26/2024 12:59 PM EDT Encounter for health-related screening HIV 1/2 ANTIGEN/ANTIBODY, FOURTH GENERATION W/RFL Routine 04/26/2024 12:59 PM EDT Encounter for health-related screening PAP SMEAR Routine 11/27/2022 from Last 3 Months or Most Recently Relevant to Health Maintenance Results * US Thyroid (05/30/2025 4:18 PM EDT) Anatomical Region Laterality Modality Head, Neck Ultrasound 05/30/2025 4:18 PM EDT Narrative 2025 8:10 AM EDT [address] [address] Ultrasound Report Signed Patient: Allen Cassidy MR#: [id number] 6 : 1965 Acct:[id number] Age/Sex: 59 / F ADM Date: 05/30/25 Loc: HO.US Attending Dr: Krystin Melendez MD Ordering Physician: Krystin Melendez MD Date of Service: 05/30/25 Procedure(s): US thyroid Accession Number(s): [id number] cc: Krystin Melendez MD; Nancy Castillo MD Reason for Exam: chronic hoarseness, rule out thyroid nodule EXAMINATION: US THYROID CLINICAL INFORMATION: Chronic hoarseness rule out thyroid nodule COMPARISON: None available. TECHNIQUE: Linear transducer grayscale and color Doppler examination with attention to the region of the thyroid. FINDINGS: SIZE: Measurements of the thyroid lobes and nodules are given in sagittal, anteroposterior and transverse dimensions respectively. Right Thyroid Lobe: 4.6 x 0.9 x 1.1 cm, volume 2.3 mL. Parenchyma: The gland echotexture is homogeneous. Thyroid vascularity is normal. Left Thyroid Lobe: 4.3 x 0.8 x 1.4 cm, volume 2.5 mL. Parenchyma: The gland echotexture is homogeneous. Thyroid vascularity is normal. Isthmus: 0.2 cm in maximum AP dimension. Estimated total number of nodules greater than or equal to 1 cm: 0. Digestion Operator nodules are described as follows: There are several anechoic colloid cyst noted. No solid nodule seen. NODES: No lymphadenopathy is seen in the tissue surrounding the thyroid gland. US/US thyroid IMPRESSION: Stable bilateral atelectasis. No solid mass seen. Thyroid gland is unremarkable otherwise. ACR TI-RADS RECOMMENDATION REFERENCE: Ultrasound-guided fine-needle aspiration, followup ultrasound, no further follow up. * TR1 (0 point) and TR2 (2 points): No FNA or follow up. * TR3 (3 points): FNA if more than or equal to 2.5 cm in maximum dimension, followup ultrasound in 1, 3 and 5 years if 1.5 to 2.4 cm in maximum dimension. * TR4 (4-6 points): FNA if more than or equal to 1.5 cm in maximum dimension, followup ultrasound in 1, 2, 3 and 5 years if 1 to 1.4 cm in maximum dimension. * TR5 (more than or equal to 7 points): FNA if more than or equal to 1 cm in maximum dimension, followup ultrasound every year for 5 years if 0.5 to 0.9 cm in maximum dimension. * TR3, TR4 or TR5 nodules that are below the size threshold for followup receive no follow up. Electronically signed by: Tristin Kellogg MD 2025 08:07 AM EDT Dictated By: Tristin Kellogg MD Signed By: <Electronically signed by Tristin Kellogg MD in OV> 05/31/25 0807 DD/ 1618 TD/TT: 05/30/25 1623 Paving Supervisor: [facility] Procedure Note Donotuseinterpreter, Image - [address] [place] [address] Ultrasound Report Signed Patient: Allen Cassidy JMR#: [id number] 6 : 1965Acct:[id number] Age/Sex: 59 / FADM Date: 05/30/25 Loc: HO.US Attending Dr: Krystin Melendez MD Ordering Physician: Krystin Melendez MD Date of Service: 05/30/25 Procedure(s): US thyroid Accession Number(s): [id number] cc: Krystin Melendez MD; Nancy Castillo MD Reason for Exam: chronic hoarseness, rule out thyroid nodule EXAMINATION: US THYROID CLINICAL INFORMATION: Chronic hoarseness rule out thyroid nodule COMPARISON: None available. TECHNIQUE: Linear transducer grayscale and color Doppler examination with attention to the region of the thyroid. FINDINGS: SIZE: Measurements of the thyroid lobes and nodules are given in sagittal, anteroposterior and transverse dimensions respectively. Right Thyroid Lobe: 4.6 x 0.9 x 1.1 cm, volume 2.3 mL. Parenchyma: The gland echotexture is homogeneous. Thyroid vascularity is normal. Left Thyroid Lobe: 4.3 x 0.8 x 1.4 cm, volume 2.5 mL. Parenchyma: The gland echotexture is homogeneous. Thyroid vascularity is normal. Isthmus: 0.2 cm in maximum AP dimension. Estimated total number of nodules greater than or equal to 1 cm: 0. Digestion Operator nodules are described as follows: There are several anechoic colloid cyst noted. No solid nodule seen. NODES: No lymphadenopathy is seen in the tissue surrounding the thyroid gland. US/US thyroid IMPRESSION: Stable bilateral atelectasis. No solid mass seen. Thyroid gland is unremarkable otherwise. ACR TI-RADS RECOMMENDATION REFERENCE: Ultrasound-guided fine-needle aspiration, followup ultrasound, no further follow up. * TR1 (0 point) and TR2 (2 points): No FNA or follow up. * TR3 (3 points): FNA if more than or equal to 2.5 cm in maximum dimension, followup ultrasound in 1, 3 and 5 years if 1.5 to 2.4 cm in maximum dimension. * TR4 (4-6 points): FNA if more than or equal to 1.5 cm in maximum dimension, followup ultrasound in 1, 2, 3 and 5 years if 1 to 1.4 cm in maximum dimension. * TR5 (more than or equal to 7 points): FNA if more than or equal to 1 cm in maximum dimension, followup ultrasound every year for 5 years if 0.5 to 0.9 cm in maximum dimension. * TR3, TR4 or TR5 nodules that are below the size threshold for followup receive no follow up. Electronically signed by: Tristin Kellogg MD 2025 08:07 AM EDT Dictated By: Tristin Kellogg MD Signed By: <Electronically signed by Tristin Kellogg MD in OV> 05/31/25 0807 DD/ 1618 TD/TT: 05/30/25 1623 Paving Supervisor: [facility] us Krystin Melendez MD IM US PROCEDURES Final Resul t * (ABNORMAL) Vitamin D, 25-Hydroxy, Total, Immunoassay (04/13/2025 9:56 AM EDT) Vitamin D 25-OH Total 23.9(L) >30 ng/mL [facility] Comment: Health Based Reference Values*< 20 ng/mL Msiijqyhh74-33 ng/mL Insufficient> 30 ng/mL Sufficient*Nathan GRAYSON. N Engl J Med. 2007;357:266-280There is no well-established upper level of normal vitamin Dlevels. Some laboratories use 50 ng/mL as an upper limit ofnormal. However, toxicity is patient-dependent and may occurat any level. Careful correlation with the patient'spresentation is necessary and, if there is concern forvitamin D toxicity, treatment should be consideredirrespective of the serum level.Care must be taken in interpreting Vitamin D results fromdifferent laboratories and methodologies. Published datademonstrated that results from patients undergoinghemodialysis may show a negative bias when tested withvarious automated 25-OH vitamin D assays when compared toLC-MS/MS.When testing samples from patients whose predominant form ofVitamin D is Vitamin D2, such as patients receiving VitaminD2 supplementation, results that are subtherapeutic shouldbe confirmed with another method such as LC-MS/MS. Blood Venous blood specimen / Unknown 04/13/2025 9:56 AM EDT 04/13/2025 2:26 PM EDT us Krystin Melendez MD LAB BLOOD ORDERABLES Final Re sult [facility] [address] [place] [phone] * (ABNORMAL) Vitamin B12/Folate, Serum Panel (04/13/2025 9:56 AM EDT) Vitamin B12 1,859(H) 200 - 900 pg/mL [facility] Comment:NORMAL 200-900 PG/ML INDETERMINATE 160-199 PG/ML DEFICIENT < 160 PG/ML Folate 7.7 > or = 4.0 ng/mL [facility] Comment:Reference Values:> o r = 4.0 ng/mL< 4.0 ng/mL suggests folate deficiency Methotrexate, aminopterin and folinic acid(leucovorin) are chemotherapeutic agents whose molecularstructures are similar to folate; therefore, the Architectfolate assay cannot be used for patients using these drugs. Blood Venous blood specimen / Unknown 04/13/2025 9:56 AM EDT 04/13/2025 2:22 PM EDT Krystin Melendez MD LAB BLOOD ORDERABLES Final Re sult Performing Organization Address [facility] de Phone Number [facility] [address] [place] [phone] [phone] * TSH W/Reflex to FT4 (04/13/2025 9:56 AM EDT) TSH reflex Free T4 2.45 0.32 - 4.0 uIU/mL [facility] Blood Venous blood specimen / Unknown 04/13/2025 9:56 AM EDT 04/13/2025 2:26 PM EDT Krystin Melendez MD LAB BLOOD ORDERABLES Final Re sult Performing Organization Address [facility] de Phone Number [facility] [address] [place] [phone] * CBC auto differential (04/13/2025 9:56 AM EDT) White Blood Count 8.1 4.8 - 10.8 X10*3/uL [facility] Red Blood Count 4.87 4.20 - 5.50 X10*6/uL [facility] Hemoglobin 13.2 12.0 - 16.0 g/dl [facility] Hematocrit 40.8 37.0 - 47.0 % [facility] Mean Corpuscular Volume 83.8 80.0 - 98.0 fL [facility] Mean Corpuscular Hemoglobin 27.1 27.0 - 33.0 pg [facility] Mean Corpuscular HGB Conc 32.4 31.0 - 35.0 g/dl [facility] Red Cell Distribution Width 12.8 11.0 - 16.0 % [facility] Platelet Count 293 160 - 400 X10*3/uL [facility] Mean Platelet Volume 11.7 9.4 - 12.3 fL [facility] Neutrophils Percent Auto 56.5 45 - 73 % [facility] Imm Gran Pct Auto 0.2 0.0 - 0.4 % [facility] Lymphocytes Percent Auto 34.3 20 - 40 % [facility] Monocytes Percent Auto 5.9 2 - 11 % [facility] Eosinophils Percent Auto 2.2 0 - 4 % [facility] Basophils Percent Auto 0.9 0 - 2 % [facility] NRBC Pct Auto 0.0 0.0 - 0.2 /100WBC [facility] Neutrophils Absolute Auto 4.6 2.0 - 8.3 x10*3/uL [facility] Imm Gran Abs Auto 0.02 0.00 - 0.03 X10*3/uL [facility] Lymphocytes Absolute Auto 2.8 1.2 - 4.9 X10*3/uL [facility] Monocytes Absolute Auto 0.5 0.1 - 1.2 X10*3/uL [facility] Eosinophils Absolute Auto 0.2 0.0 - 0.4 X10*3/uL [facility] Basophils Absolute Auto 0.1 0.0 - 0.2 X10*3/uL [facility] NRBC Abs Auto 0.000 0.0 - 0.012 X10*3/uL [facility] Blood Venous blood specimen / Unknown 04/13/2025 9:56 AM EDT 04/13/2025 2:22 PM EDT us Krystin Melendez MD LAB BLOOD ORDERABLES Final Re sult [facility] [address] [place] [phone] [phone] * (ABNORMAL) Sed Rate by Modified Hector (04/13/2025 9:56 AM EDT) Erythrocyte Sedimentation Rate 27(H) 0 - 20 MM/HR [facility] Comment:Patients with polycy themia and many hemoglobin abnormalitiesmay have depressed sed rates whereas patients with anemiamay have elevated sed rates. Blood Venous blood specimen / Unknown 04/13/2025 9:56 AM EDT 04/13/2025 2:22 PM EDT us Krystin Melendez MD LAB BLOOD ORDERABLES Final Re sult [facility] [address] [place] [phone] [phone] * CECELIA Screen,IFA, with Reflex to Titer and Pattern (04/13/2025 9:56 AM EDT) Anti Nuclear Antibody Screen NEGATIVE NEGATIVE [facility] Comment:CECELIA IFA is a first l ine screen for detecting thepresence of up to approximately 150 autoantibodies invarious autoimmune diseases. A negative CECELIA IFA resultsuggests an CECELIA-associated autoimmune disease is notpresent at this time, but is not definitive. If thereis high clinical suspicion for Sjogren's syndrome,testing for anti-SS-A/Ro antibody should be considered.Anti-Nadine-1 antibody should be considered for clinicallysuspected inflammatory myopathies.AC-0: NegativeInternational Consensus on CECELIA Patterns(https://doi.org/10.1515/gdqe-3904-1375)For additional information, please refer tohttp://education.Leixir.Unidym/faq/FHB502(This link is being provided for informational/educational purposes only.)THIS TEST WAS PERFORMED AT:[employer] [place] [phone] PAULSON MD CECELIA Titer TNP [facility] CECELIA Pattern [facility] CECELIA TITER 2 (REF LAB) [facility] CECELIA TITER 3 [facility] CECELIA PATTERN 3 [facility] Blood Venous blood specimen / Unknown 04/13/2025 9:56 AM EDT 04/13/2025 2:22 PM EDT us Krystin Melendez MD LAB BLOOD ORDERABLES Final Re sult Performing Organization Address [facility] Co de Phone Number [facility] [address] [place] [phone] * Hepatitis C Antibody with Reflex to HCV, RNA, Quantitative, Real-Time PCR (04/26/2024 12:59 PM EDT) Hepatitis C Antibody Nonreactive Nonreactive [facility] Comment:Antibodies to HCV no t detected; does not exclude early acuteHCV infection. Blood Venous blood specimen / Unknown 04/26/2024 12:59 PM EDT 04/26/2024 2:19 PM EDT Nancy Castillo MD LAB BLOOD ORDERABLES Final Re sult Performing Organization Address [facility] de Phone Number [facility] [address] [place] [phone] * HIV-1/2 Antigen and Antibodies, Fourth Generation, with Reflexes (04/26/2024 12:59 PM EDT) Pathologist [facility] HIV AB/AG Nonreactive Nonreactive [facility] Comment:HIV-1 p24 Ag and/or HIV-1/HIV-2 Ab not detected.A test result that is nonreactive does not exclude thepossibility of exposure to or infection with HIV-1 and/orHIV-2. Nonreactive results in this assay for individualswith prior exposure to HIV-1 and/or HIV-2 may be due toantigen and antibody levels that are below the limit ofdetection of this assay.[facility] [employer] [facility] HIV Ag/Ab Combo assay result andsupplemental assay results should be interpreted inconjunction with the patient's clinical presentation,history and other laboratory results. If the results areinconsistent with clinical evidence, additional testing issuggested to confirm the result. Blood Venous blood specimen / Unknown 04/26/2024 12:59 PM EDT 04/26/2024 2:19 PM EDT us Nancy Castillo MD LAB BLOOD ORDERABLES Final Re sult [facility] [address] [place] [phone] * Pap Smear (11/27/2022) Pap Smear 1. NILM 1. NILM Swab 11/27/2022 us Historical Provider LAB CYTOLOGY ORDERABLES F inal Result from Last 3 Months or Most Recently Relevant to Health Maintenance Insurance [facility] Care Teams Machine Container Washer Relationship Specialty Start Date End Date Nancy Castillo MD [address] [place] [address] PCP - General Family Medicine 04/23/24
--- OUTSIDE RECORDS SUMMARY | 2025-06-13 14:23 | XMS_ITS | Encounter Summary ---
Author Organization [employer] Address [address] [facility] [address] [place] [address] Care Team Providers Care Squilgeer Name Role Phone Nancy Castillo MD Primary Care Provider [phone] Encounter Details Date Type Department Care Team ([facility] st Contact Info) Description 04/18/2025 Results Follow-Up [facility] [address] [place] [address] Krystin Melendez MD [address] [place] [address] CBC auto differential, Vitamin D, 25-Hydroxy, Total, Immunoassay, TSH W/Reflex to FT4, Additional followed-up results: 4 Social History Tobacco Use Types Packs/Day Years [...] Start Date Job End Date Works in [employer] Not on file Not on file Not on file documented as of this encounter Plan of Treatment Not on file documented as of this encounter Visit Diagnoses Not on filedocumented in this encounter Care Teams Squilgeer Relationship Specialty Start Date End Date Nancy Castillo MD [address] [place] [phone] PCP - General Family Medicine 04/23/24 documented as of this encounter
--- OUTSIDE RECORDS SUMMARY | 2025-06-13 14:23 | XMS_ITS | Encounter Summary ---
Author Organization [employer] Address [address] [facility] [address] [place] [address] Care Team Providers Care Iron Bender Name Role Phone Nancy Castillo MD Primary Care Provider [phone] Encounter Details Date Type Department Care Team (Late st Contact Info) Description 04/27/2024 Orders Only [facility] [address] [place], [place] [phone] Provider, MD [place] Social History Tobacco Use Types Packs/Day Years [...] Start Date Job End Date Works in [employer] Not on file Not on file [...] Smear, 1 Slide (11/26/2021 3:54 PM EDT) Historical Provider MD LAB CYTOLOGY ORDERABLES F inal Result documented in this encounter Visit Diagnoses Not on filedocumented in this encounter Care Teams Iron Bender Relationship Specialty Start Date End Date Nancy Castillo MD [address] [place] [phone] PCP - General Family Medicine 04/23/24 documented as of this encounter
[2025-06-13 15:03] LABS: Cholesterol 157 mg/dL (<200); HDL Cholesterol 58 mg/dL (>40); Triglycerides 82 mg/dL (<150)
[2025-06-14 07:54] LABS: HIV Num 1 0.05 S/CO (0.00-0.99)
== END 2025-06-13 11:49 | disposition home or self-care (01) ==
LOC: HO.CHCLDS 11:48
PROVIDERS: Visit Provider Family Medicine
DX: Z11.4 Encounter for screening for human immunodeficiency virus [HIV] (principal)
CPT/HCPCS: 36415; 80061; 87389

== ENCOUNTER 2025-07-26 12:54 | Outpatient (RCR) | payer OTHER, SELFPAY ==
--- NOTE | 2025-07-28 16:45 | MHC.SP.ADU ---
Referring provider: Lopez Fu MD Reason for Referral: Dysphonia Type of Treatment: 41[address] Behavioral and Qualitative Analysis of Voice and Resonance Date of Plan of Treatment: 07/26/25 Onset of Symptoms/Illness: 12/19/20 Date Treatment Started: 07/26/25 Medical Diagnosis: Dysphonia Primary Speech Language Diagnosis: R49.0 Dysphonia Secondary Speech Language Diagnosis: History Allen Cassidy is a 60 year old woman who was referred by her ENT for a voice assessment as an intake for Vocal Therapy. Her ENT, Dr. Fu, has diagnosed her with muscle tension dysphonia, and on recent laryngoscopy noted: Evidence of vocal cord hyperfunction and a slight gap where the cords are not meeting completely, leading to strain during speech. Dr. Fu further noted that she was similarly diagnosed by Dr. Medellin in 2020, she was referred for speech therapy then, but apparently this did not happen. Allen reports that she has had difficulty with her voice for many years, however she feels it has been worsening since a recent trip to [place]. Allen reported on this trip she was at a high altitude, and had difficulty breathing, leading to mouth breathing only, which she feels affected her voice. She also reported that when she was younger, she noted her voice loss occurred during her menstrual cycles, and became more constant after she went through menopause. Allen on this day said that her voice was particularly bad as she had a poor nights sleep, which is usually a trigger for her. She reported that as a result of her vocal issues, she has reduced her hours at work to 4-5 hours in the afternoon. 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 She additionally lives with her and other members of her family (sister/brother and their family) in a shared home. She noted that she has a history of GERD, for which she is currently taking omeprazole which she feels controls it well. She further noted that she has worked with physical therapist on spine and back tension issues, and that muscle tension is a concern for her. She noted that she does not have a history of asthma or allergies, and that she is very conscious of how much water/fluid she is drinking on any given day. She also reported using a humidifier in her room at home. Notably, after talking about her history with muscle tension in her back shoulders, and a discussion of how anxiety contributes to this condition, she did report a history of trauma related to child bearing that clearly had a very significant impact on her and her family's life. Allen reported that her voice issues vary in intensity, with some days where she cannot talk at all and other days where her voice is more functional. Allen, during the interview for this assessment, spoke in a loud whisper, and at times with absent voicing, however as the evaluation progressed, voicing was more evident when she was speaking. Medical History: Acid Reflux Medication List: Please see chart. Recent Hospitalizations: No Respiratory Needs: Room Air Patient Orientation: Alert & Oriented x 4 Social History: Employment Status: [employer] Highest level of education obtained: Completed High School/GED Current Living Situation: Lives in a private residence with her and several members of her family. Assistive Devices in use: Glasses/Contacts Past Speech Language Therapy: None Other Therapies Seen in Current Calendar Year: Physical Therapy Reported Speech, Language, Cognition difficulties: Voice Comments: Allen presents with issues related to chronic loss of voice, which is attributed to muscle tension dysphonia. Quality of Life: Excellent Patient Stated Goal of Speech-Language Therapy: Improve vocal quality/vocal health Assessment Speech Production: Articulate Clinical Impression: Intact Observations: Allen presents with clear and articulate speech. Informal Voice Assessment: Voice Loudness: Moderately Soft/Quiet Voice Nasal Resonance: Normal Voice Oral Resonance: Normal Voice Phonatory-based Quality: Hoarse, Loss of Voice Voice Pitch: Normal Clinical Impression: Impaired Clinicial Observations: On assessment today, Allen was very cooperative, but tentative at times in using or producing her voice. Allen was administered the Consensus Auditory Perceptual Evaluation of Voice (CAPE-V). On this evaluation, Allen demonstrated a balanced ratio of voiceless v. voiced phonation (S/Z Ration) of 1.17. Allen was able to sustain both sounds well with good breath support/control, and while phonation of /z/ was mildly hoarse it was well sustained. When prompted to sustain vowel sounds /ah/ and /ee/, Allen also produced sustained voicing that was clearer and louder that when producing spontaneous speech, and only mildly hoarse, and consistently in the range of 70 d.b. However when asked to vary volume deliberately on a speech task, Allen demonstrated very limited loudness variation. When producing a simple vocal scale for pitch variation, Allen readily produced a full octave with good vocal clarity, only mild hoarse/breathy. When producing normal speech (phonemically balanced sentences, [place] passage paragraph), Allen's vocal quality strained, hoarse and low in volume with periods of absent voicing/whisper. After completing vocal execises and some breath work, Allen's vocal quality in her spontaneous speech somewhat improves, and she was able to more consistently sustain phonation with milder evidence of hoarse vocal quality. Impressions and Recommendations Summary: Allen presents today with a mild to moderate muscle tension dysphonia with functional episodes of aphonia/loss of voice. Allen on assessment evidenced good ability to sustain phonation, and produce pitch variety with improved vocal function when compared to her spontaneous speaking voice. She reported vocal health issues related to GERD and to history of muscle tension in response to stress and anxiety. She is concerned about her voice and her issues have affected her employment and communication interactions. At the end of this evaluation, Allen was introduced to some relaxation strategies used during therapy that can be begun practicing at home. Allen was familiar with circular breathing strategies from studying yoga. It is recommended Allen return for a period of voice therapy to improve her vocal function. Impact on Daily Function/Activity Limitations: Daily Activities: Moderate Interpersonal Interactions: Moderate Education: n/a Employment: Moderate Community: Milds Prognosis for Improvement: Good Comment: Allen has not prevously received speech therapy for her voice condition. Recommendation for Speech Therapy: Outpatient Speech Therapy Frequency/Duration: One forty five minute session weekly. Date Range for Service Requested: Six to eight weeks. Time to Reassess: PRN Alf Goals: Allen will demonstrate improved vocal production and reduced vocal strain in her functional communication as observed in four out of five opportunities. Short Term Goals: Goal # : 1.1: Allen will use relaxation strategies, including circular breathing, constructive rest, visualization techniques to reduce muscle tension demonstrating 80% independence on instructed techniques. 1.2: Allen will demonstrate strategies for laryngeal massage to reduce tension in structures associated with the larynx for a period of three minutes. Goal Status: Goal# : 2.1 Allen will use breath support to produce vocal flow and easy onset for vcv, vowel initial words, phrases and sentences with 80% accuracy 2.2 Arpna will use vocal flow techniques to produce increased volume and resonance for words, phrases and sentences with 80% accuracy Goal Status: Goal # : 3.1: Arpna will produce adequate respiratory support and resonance to vary volume while counting or verbalizing (soft to loud/loud to soft) with 80% accuracy. 3.2: Arpna will produce adequate respiratory support, resonance and sustained vocalization while reading a passage of at least a paragraph length with 80% accuracy Goal Status: Goal # : 4.1: Arpna will sustain phonation while speaking in structured and unstructured contexts as observe in four out of five observations. Goal Status: Recommended Referrals to be Discussed with Primary Care Provider: Patient Education: Completed: Yes Patient/Caregiver Education: Described Results of Evaluation Patient expressed understanding of evaluation Patient agrees with goals and treatment plan Comments/Barriers to Learning: District Administrative Assistant Clinican/Clinical Fellow: No Supervisory Statement: Speech Language Pathologist: Jumana Hernandez M.A., CCC-MEDICAL OFFICER PSYCHIATRY
== END 2025-08-01 16:24 | disposition still patient (30) ==
LOC: HO.SH 12:54
PROVIDERS: PCP Family Medicine; Visit Provider Otolaryngology
DX: R49.0 Dysphonia (principal)
CPT/HCPCS: 92524